=== PATIENT | male | born 1950 | race Caucasian/White ===

== ENCOUNTER 2020-12-24 11:03 | Outpatient (REF) | payer BC, SELFPAY ==
[2020-12-24 13:36] LABS: MANUAL DIFF FLAG NO
[2020-12-24 13:42] LABS: Basophils Absolute Auto 0.1 X10*3/uL (0.0-0.2); Eosinophils Absolute Auto 0.5 X10*3/uL (0.0-0.4); Eosinophils Percent Auto 10.4 % (0-4); Hematocrit 38.2 % (42-52); Hemoglobin 12.5 g/dl (14.0-18.0); Imm Gran Abs Auto 0.01 X10*3/uL (0.00-0.03); Imm Gran Pct Auto 0.2 % (0.0-0.4); Lymphocytes Absolute Auto 1.2 X10*3/uL (1.2-4.9); Lymphocytes Percent Auto 22.8 % (20-40); Mean Corpuscular HGB Conc 32.7 g/dl (31.0-36.0); Mean Corpuscular Hemoglobin 29.1 pg (27.0-33.0); Mean Corpuscular Volume 88.8 fL (80-98); Mean Platelet Volume 9.6 fL (9.4-12.4); Monocytes Absolute Auto 0.6 X10*3/uL (0.1-1.2); Monocytes Percent Auto 11.4 % (2-11); Neutrophils Absolute Auto 2.8 X10*3/uL (2.0-8.3); Neutrophils Percent Auto 54.2 % (45-73); Platelet Count 298 X10*3/uL (160-400); Red Cell Distribution Width 12.4 % (11.0-16.0); White Blood Count 5.2 X10*3/uL (4.8-10.8)
[2020-12-24 13:51] LABS: D Dimer 338 NG/ML
[2020-12-24 14:03] LABS: Alanine Aminotransferase 11 U/L (0-40); Albumin Level 4.1 g/dL (3.5-5.0); Alkaline Phosphatase 109 U/L (39-117); Anion Gap 11 (12-20); Aspartate Amino Transferase 19 U/L (5-37); Bilirubin Total 0.5 mg/dL (0.0-1.0); Blood Urea Nitrogen 14 mg/dL (9-16); Calcium 9.5 mg/dL (8.4-10.2); Carbon Dioxide 28 mmol/L (22-29); Chloride 101 mmol/L (96-108); Cholesterol 160 mg/dL; Estimated Glomerular Filt Rate > 60; Glucose Fasting 83 mg/dL (60-99); HDL Cholesterol 58 mg/dL; LDL Cholesterol Calculated 95 mg/dl; Potassium 4.4 mmol/L (3.3-5.1); Sodium 136 mmol/L (135-145); Total Protein 7.5 g/dL (6.5-8.0); Triglycerides 36 mg/dL
[2020-12-24 14:16] LABS: Prostate Specific Antigen Scr 0.58 ng/mL (<0.05-4.0)
[2020-12-26 15:46] LABS: Lyme Abs Screen <0.90 index
== END 2020-12-24 11:04 | disposition home or self-care (01) ==
LOC: HO.HMGCLDS 11:03
PROVIDERS: PCP Internal Medicine; Visit Provider Internal Medicine
DX: Z00.00 Encounter for general adult medical examination without abnormal findings (principal); Z12.5 Encounter for screening for malignant neoplasm of prostate
CPT/HCPCS: 36415; 80053; 80061; 84153; 85025; 85379; 86617; 86618

== ENCOUNTER 2022-04-13 14:15 | Outpatient (REF) | payer BC, SELFPAY ==
--- NOTE | ~2022-04-13 | XR_ITS ---
EXAMINATION: XR CERVICAL SPINE CLINICAL INFORMATION: Pain. COMPARISON: None TECHNIQUE: Frontal, odontoid, bilateral oblique and lateral views are obtained. FINDINGS: Vertebral body heights and alignment are normal. There is moderately severe disc space narrowing at C3-C4. At C4-C5 and C5-C6, there is mild disc space narrowing. At C6-C7, there is moderately severe disc space narrowing. No acute fracture or spondylolisthesis is seen. There is multi-level cervical spondylosis and facet arthropathy. The disc spaces are well-maintained. No acute fracture or spondylolisthesis is seen. The posterior elements are intact. There is right neural foraminal narrowing extending from C3-C4 through C7-T1. There is left neural foramina at C2-C3, C3-C4 and C6-C7. There is no prevertebral soft tissue swelling. The dens and C7-T1 interface are normal. XR/XR cervical spine min 6V IMPRESSION: 1. There is moderately severe degenerative disc disease at C3-C4 and C6-C7, and mild degenerative disc disease is seen at C4-C5 and C5-C6. 2. This multi-level cervical spondylosis and facet arthropathy. 3. There is multi-level bilateral neural foraminal narrowing, detailed above.
[2022-04-13 15:23] LABS: C Reactive Protein 6.02 mg/dL (< or = 0.50)
[2022-04-13 15:38] LABS: Erythrocyte Sedimentation Rate 55 MM/HR (0-15)
[2022-04-17 08:58] LABS: Lyme Blot 0.98 index
[2022-04-18 08:37] LABS: Lyme Abs Screen EQUIVOCAL
[2022-04-18 14:04] LABS: 18 KD (IgG) Band REACTIVE; 23 KD (IgG) Band REACTIVE; 23 KD (IgM) Band REACTIVE; 28 KD (IgG) Band NON-REACTIVE; 30 KD (IgG) Band NON-REACTIVE; 39 KD (IgM) Band NON-REACTIVE; 39KD (IgG) Band NON-REACTIVE; 41 KD (IgM) Band NON-REACTIVE; 41KD (IgG) Band NON-REACTIVE; 45 KD (IgG) Band NON-REACTIVE; 58 KD (IgG) Band REACTIVE; 66 KD (IgG) Band NON-REACTIVE; 93 KD (IgG) Band REACTIVE; Lyme IgG Blot Interp NEGATIVE (NEGATIVE); Lyme IgM Blot Interp NEGATIVE (NEGATIVE)
== END 2022-04-13 14:16 | disposition home or self-care (01) ==
LOC: HO.XRAY 14:15
PROVIDERS: PCP Internal Medicine; Visit Provider Internal Medicine
DX: M54.2 Cervicalgia (principal)
CPT/HCPCS: 36415; 72052; 85652; 86140; 86617; 86618

== ENCOUNTER 2022-09-21 14:14 | Outpatient (REF) | payer BC, SELFPAY ==
[2022-09-25 07:28] LABS: Lyme Abs Screen <0.90 index
== END 2022-09-21 14:15 | disposition home or self-care (01) ==
LOC: HO.LAB 14:14
PROVIDERS: PCP Internal Medicine; Visit Provider Internal Medicine
DX: A69.20 Lyme disease, unspecified (principal)
CPT/HCPCS: 36415; 86617; 86618

== ENCOUNTER → 2023-02-14 09:57 | Outpatient (REF) | payer BC, SELFPAY | LOC: HO.SL 09:57 | PROVIDERS: PCP Internal Medicine; Visit Provider Internal Medicine | DX: G47.33 Obstructive sleep apnea (adult) (pediatric) (principal) | CPT/HCPCS: 95806 ==

== ENCOUNTER → 2023-02-14 19:00 | Outpatient (BNV) | payer BC, SELFPAY | PROVIDERS: PCP Internal Medicine; Visit Provider Internal Medicine | DX: G47.33 Obstructive sleep apnea (adult) (pediatric) (principal) | CPT/HCPCS: 95806 ==

== ENCOUNTER 2023-03-28 08:36 | Outpatient (AMB) | payer BC, SELFPAY ==
--- NOTE | 2023-03-28 08:37 | A.OFFVIS_ITS ---
Intake Vital Signs 03/28/23 08:39 Height 5 ft 7.72 in Weight 135 lb 12.876 oz BMI 20.8 BP 134/68 Blood Pressure Location Rt brachial Position Sitting Pulse 76 Pulse Source Pulse Oximeter Intake Visit Reasons: Cervicalgia Intake Note: New patient presents today for consult. C/o neck pain, upper and lower back, hips, and chest. Patient states the pain comes and goes and describes the pain as body aches that will last for a few days then goes away. Pain started approx 20 years. Has tried Motrin. 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 The condition started about 20 years ago with patient getting episodes of migratory joint pain usually affecting his neck, chest, shoulders, outside of his hips, back. The attacks would occur 3 to 4 times a month and last 2-5 days. It would usually affect 1 joint. The pain would be persistent and not particularly better or worse in the morning or at night. He sometimes takes Motrin 200-400 mg once when symptoms are severe. He did not notice any swollen joints. Did not notice any rashes. In 2019. Patient pulled a tick from his skin and was tested for Lyme disease, testing was positive. He was having joint pain. He received antibiotics with resolution of his symptoms. He states that those symptoms have been there for about 20 years and have not changed much in frequency or intensity. He denies any diarrhea, constipation, blood in stools. He had a colonoscopy and does not recall anything remarkable. Denies history suggestive of uveitis. His father had gout. He is unaware of any family history of an autoimmune rheumatic disease. Of note patient was diagnosed with chronic eosinophilic pneumonia about 20 years ago. He would get prednisone tapers as needed for significant symptoms. He took omalizumab for 4-5 years, then it is lost efficacy and was switched to Dupixent about 4 years ago and it is effective. He denies any fevers, weight loss, denies any history of DVT/PE. 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 Review of Systems Const Denies fever(s) and Denies weight loss Eyes Denies blurry vision and Denies eye pain Card Reports no additional complaints Resp Reports no additional complaints GI Reports no additional complaints, Denies abdominal pain, Denies hematochezia, Denies diarrhea and Denies loose stools Musc Reports back pain, Reports arthralgias, Denies joint swelling and Reports stiffness Skin/Breast Denies rash Physical Exam Vital Signs: Last Vital Signs Pulse 76 03/28/23 08:39 BP 134/68 03/28/23 08:39 BMI result Body Mass Index 20.8 Const General: cooperative, healthy appearing and comfortable Nutritional Appearance: average body habitus Orientation/consciousness: patient oriented x3 Limitations: no limitations HEENT Head: Yes normocephalic and Yes atraumatic Resp Effort & Inspection: normal respiratory effort and able to speak in complete sentences Auscultation: clear to auscultation bilaterally Cardio Rate: regular rate Rhythm: regular rhythm Heart sounds: S1 normal heart sound present Skin Other: Significant dry skin both hands General skin exam: dry skin Neuro General: patient oriented x3 Extrem Other: No active synovitis Osteoarthritic changes of both hands with no active synovitis Deformity and some enlargement of right 4th PIP (injured in the past) Normal nailfold capillaroscopy No signs of tennis or golfer's elbow bilaterally Negative rotator cuff provocative maneuvers bilaterally Dora test 10-13 cm Negative straight leg raise test bilaterally Negative DWAYNE test bilaterally No ankle swelling or tenderness bilaterally Negative MTP squeeze test Assessment & Plan Assessment & Plan (1) Polyarthralgia: Code(s): M25.50 - Pain in unspecified joint Plan: This is a 72-year-old male who presents for evaluation of intermittent migratory polyarthralgias that occur 3 to 4 times a month and last 2-5 days affecting different joints including neck, shoulders, hips, lower back. Resolved with Motrin when needed. Has history of chronic eosinophilic pneumonia. There is no active synovitis on exam. Advised patient to get labs done as soon as he feels he is in a flare will check bilateral SI joint x-rays, L-spine x-rays and bilateral shoulder x-rays. Follow-up after workup is completed Plan I spent 47 minutes reviewing patient's chart, evaluating patient, ordering diagnostic workup, counseling patient and documenting in the chart Orders: Orders Complete Blood Count Auto Diff Today M25.50 - Pain in unspecified joint Erythrocyte Sedimentation Rate Today M25.50 - Pain in unspecified joint Protein Electrophoresis, Serum Today M25.50 - Pain in unspecified joint Hepatitis A,B,C Profile Today Z11.59 - Encounter for screening for other viral diseases T Spot TB Today Z11.7 - Encounter for testing for latent tuberculosis infection MANDI Reflex Titer and Pattern Today M25.50 - Pain in unspecified joint Rheumatoid Factor Today M25.50 - Pain in unspecified joint XR shoulder RT min 2V Today M25.50 - Pain in unspecified joint Comprehensive Met. Panel Today M25.50 - Pain in unspecified joint C Reactive Protein Today M25.50 - Pain in unspecified joint Immunofixation Pnl, Serum Today M25.50 - Pain in unspecified joint Cyclic Citrullinated Peptide Today M25.50 - Pain in unspecified joint HLA B27 Today M45.9 - Ankylosing spondylitis of unspecified sites in spine XR sacroiliac joint min 3V Today M25.50 - Pain in unspecified joint XR shoulder LT min 2V Today M25.50 - Pain in unspecified joint XR lumbar spine 4V min Today M25.50 - Pain in unspecified joint Coding Level of Care Code New Pt Level 4 (72652) Diagnoses Polyarthralgia M25.50
[2023-03-28 08:39] VITALS: BP 134/68; PULSE 76; BMI 20.8
== END 2023-03-28 09:26 | disposition home or self-care (01) ==
PROVIDERS: PCP Internal Medicine; Visit Provider Student in an Organized Health Care Education/Training Program
DX: M25.50 Pain in unspecified joint (principal)
CPT/HCPCS: 99204

== ENCOUNTER → 2023-03-28 08:36 | Outpatient (BNVA) | payer BC, SELFPAY | PROVIDERS: PCP Internal Medicine; Visit Provider Student in an Organized Health Care Education/Training Program ==

== ENCOUNTER 2023-06-20 09:36 | Outpatient (AMB) | payer BC, SELFPAY ==
[2023-06-20 09:41] VITALS: BP 142/64; PULSE 66; O2SAT 100; BMI 21.1
--- NOTE | 2023-06-20 09:41 | A.OFFVIS_ITS ---
Intake Vital Signs 06/20/23 09:41 Height 5 ft 7.72 in Weight 137 lb 12.623 oz BMI 21.1 BP 142/64 H Blood Pressure Location Lt brachial Position Sitting Pulse 66 Pulse Source Doppler Pulse Oximetry (%) 100 Oxygen Delivery Method Room Air Intake Visit Reasons: sleep apnea Allergies No Known Allergies Allergy (Verified 03/28/23 08:44) HPI sleep apnea HPI Details 72-year-old gentleman with underlying ob structive sleep apnea, previously managed with BiPAP secondary to intolerance of CPAP who has had a recent sleep study showing AHI of 12 and wants to continue on nocturnal noninvasive positive pressure ventilation therapy. 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 Review of Systems Const Denies daytime sleepiness, Denies excessive sweating, Denies fatigue, Denies fever(s), Denies lethargy, Denies malaise, Denies night sweats, Denies snoring and Denies weight loss Eyes Denies blurry vision and Denies itchy eyes ENT Denies nasal congestion, Denies post nasal drip, Denies sinus pain, Denies sinus pressure and Denies other ( Thrush) Card Denies chest pain, Denies pedal edema, Denies dyspnea, Denies orthopnea and Denies paroxysmal nocturnal dyspnea Resp Denies cough, Denies hemoptysis, Denies excessive phlegm production, Denies dyspnea, Denies snoring and Denies wheezing GI Denies abdominal pain and Denies heartburn Musc Denies myalgias, Denies arthralgias and Denies joint swelling Skin/Breast Denies rash Neuro Denies memory loss and Denies seizure-like activity Psych Denies abnormal sleep pattern, Denies anxiety and Denies memory loss Endo Denies excessive sweating, Denies fatigue and Denies heat intolerance Bennie/Lymph Denies easy bruising Aller/Immun Denies itchy eyes, Denies seasonal rhinorrhea and Denies wheezing Physical Exam Vital Signs: Last Vital Signs Pulse 66 06/20/23 09:41 BP 142/64 H 06/20/23 09:41 Pulse Ox 100 06/20/23 09:41 Oxygen Delivery Method Room Air 06/20/23 09:41 BMI result Body Mass Index 21.1 Const General: no acute distress and alert Nutritional Appearance: not obese Orientation/consciousness: Other orientation findings ( oriented) HEENT Head: Yes atraumatic Eyes General: appearance normal, both eyes and all related structures Sclerae: sclerae normal EOM: EOMs intact bilaterally Neck Neck: Yes supple Lymphatic: no lymphadenopathy noted Resp Effort & Inspection: normal respiratory effort and no use of accessory muscles Cardio Rate: regular rate Skin General skin exam: other ( warm) Extrem General: No clubbing and No cyanosis Assessment & Plan Assessment & Plan (1) Obstructive sleep apnea: Code(s): G47.33 - Obstructive sleep apnea (adult) (pediatric) Plan: Results of sleep study reviewed - underlying mild obstructive sleep apnea. Will try on APAP of 5-15 cm of water. Order placed. Coding Level of Care Code New Pt Level 3 (27265) Diagnoses Obstructive sleep apnea G47.33
== END 2023-06-20 09:55 | disposition home or self-care (01) ==
PROVIDERS: PCP Internal Medicine; Referring Provider Internal Medicine; Visit Provider Internal Medicine Pulmonary Disease
DX: G47.33 Obstructive sleep apnea (adult) (pediatric) (principal)
CPT/HCPCS: 99203

== ENCOUNTER → 2023-06-20 09:36 | Outpatient (BNVA) | payer BC, SELFPAY | PROVIDERS: PCP Internal Medicine; Referring Provider Internal Medicine; Visit Provider Internal Medicine Pulmonary Disease ==

== ENCOUNTER 2023-07-11 10:39 | Outpatient (REF) | payer BC, SELFPAY ==
[2023-07-11 11:12] LABS: MANUAL DIFF FLAG NO
[2023-07-11 12:00] LABS: Basophils Percent Auto 0.6 % (0-2); Eosinophils Absolute Auto 0.7 X10*3/uL (0.0-0.4); Eosinophils Percent Auto 10.3 % (0-4); Hematocrit 38.2 % (42.0-52.0); Hemoglobin 12.3 g/dl (14.0-18.0); Imm Gran Abs Auto 0.01 X10*3/uL (0.00-0.03); Imm Gran Pct Auto 0.2 % (0.0-0.4); Lymphocytes Absolute Auto 1.1 X10*3/uL (1.2-4.9); Lymphocytes Percent Auto 17.6 % (20-40); Mean Corpuscular HGB Conc 32.2 g/dl (31.0-36.0); Mean Corpuscular Hemoglobin 28.7 pg (27.0-33.0); Mean Corpuscular Volume 89.3 fL (80.0-98.0); Mean Platelet Volume 9.4 fL (9.4-12.4); Monocytes Absolute Auto 0.6 X10*3/uL (0.1-1.2); Monocytes Percent Auto 9.7 % (2-11); Neutrophils Percent Auto 61.6 % (45-73); Platelet Count 289 X10*3/uL (160-400); Red Blood Count 4.28 X10*6/uL (4.60-5.80); Red Cell Distribution Width 12.6 % (11.0-16.0); White Blood Count 6.5 X10*3/uL (4.8-10.8)
[2023-07-11 12:28] LABS: Rheumatoid Factor < 13.0 IU/mL (<15.0)
[2023-07-11 12:30] LABS: B Type Natriuretic Peptide 44 pg/mL (<100)
[2023-07-11 12:36] LABS: Erythrocyte Sedimentation Rate 68 MM/HR (0-15)
[2023-07-11 12:41] LABS: Alanine Aminotransferase 10 U/L (0-40); Alanine Aminotransferase 11 U/L (0-40); Albumin Level 4.1 g/dL (3.5-5.0); Alkaline Phosphatase 93 U/L (39-117); Alkaline Phosphatase 95 U/L (39-117); Anion Gap 12 (12-20); Anion Gap 14 (12-20); Aspartate Amino Transferase 17 U/L (5-37); Aspartate Amino Transferase 18 U/L (5-37); Bilirubin Total 0.5 mg/dL (0.0-1.0); Blood Urea Nitrogen 12 mg/dL (9-16); C Reactive Protein 9.11 mg/dL (< or = 0.50); Calcium 10.4 mg/dL (8.4-10.2); Carbon Dioxide 28 mmol/L (22-29); Carbon Dioxide 29 mmol/L (22-29); Chloride 101 mmol/L (96-108); Cholesterol 152 mg/dL (<200); Estimated Glomerular Filt Rate > 60; Glucose Random 87 mg/dL (60-115); Glucose Random 88 mg/dL (60-115); Iron 39 mcg/dL (45-160); Percent Iron Saturation 17 % (15-50); Potassium 3.9 mmol/L (3.3-5.1); Sodium 138 mmol/L (135-145); Sodium 139 mmol/L (135-145); Total Iron Binding Capacity 235 mcg/dL (228-428); Total Protein 8.2 g/dL (6.5-8.0); Total Protein 8.4 g/dL (6.5-8.0); Unsaturated Iron Binding 196 ug/dL
[2023-07-11 12:47] LABS: Ferritin 180 ng/mL (20-250)
[2023-07-11 12:50] LABS: HBS Num1 0.09 mIU/mL (0-7.99); HBsAGNum1 0.27 S/CO (0.00-0.99); Hepatitis A Antibody IgM 0.26 Index (0-0.79); Hepatitis B Core Antibody Nonreactive (Nonreactive); Hepatitis B Surface Antigen Negative (Negative); ~HepC Num1 0.23 S/CO (0.00-0.79); ~Hepatitis A Antibody IgM Nonreactive (Nonreactive); ~Hepatitis B Surface Antibody NONREACTIVE (Nonreactive); ~Hepatitis C Antibody Nonreactive (Nonreactive)
[2023-07-11 14:04] LABS: Appearance Urine Clear; Color Urine Yellow; Glucose Urine UA Negative (Negative); Leukocyte Esterase Urine Negative (Negative); Nitrite Urine Negative (Negative); PH 7.5 (5.0-9.0); Specific Gravity - Urine <= 1.005 (1.005-1.025); Urine Blood Negative (Negative); Urine Ketones Negative (Negative); Urine Protein Negative (Neg-Trace)
[2023-07-11 14:09] LABS: Folate 10.7 ng/mL (> or = 4.0); Prostate Specific Antigen 0.47 ng/mL (<0.05-4.0); Vitamin B12 515 pg/mL (200-900)
[2023-07-12 12:08] LABS: Prot Elec - Albumin 3.9 g/dL (3.8-4.8); Prot Elec - Alpha1 0.5 g/dL (0.2-0.3); Prot Elec - Alpha2 0.9 g/dL (0.5-0.9); Prot Elec - Beta 1 0.5 g/dL (0.4-0.6); Prot Elec - Beta 2 0.6 g/dL (0.2-0.5); Prot Elec - Gamma 1.5 g/dL (0.8-1.7); Prot Elec - Total Protein 7.8 g/dL (6.1-8.1)
[2023-07-12 14:03] LABS: Cyclic Citrullinated Peptide <16 UNITS
[2023-07-12 18:29] LABS: Lyme Abs Screen <0.90 index
[2023-07-14 15:32] LABS: TS Negative Control Passed; TS Panel A 0; TS Panel B 0; TS Positive Control Passed; TSpotTB Negative (Negative)
[2023-07-15 14:28] LABS: Anti Nuclear Antibody Screen POSITIVE (NEGATIVE)
[2023-07-16 17:32] LABS: IgA 442 mg/dL (70-320); IgG 1518 mg/dL (600-1540); IgM 281 mg/dL (50-300)
[2023-07-17 11:38] LABS: HLA B27 Negative (Negative)
== END 2023-07-11 10:40 | disposition home or self-care (01) ==
LOC: HO.LAB 10:39
PROVIDERS: Student in an Organized Health Care Education/Training Program; PCP Internal Medicine; Visit Provider Internal Medicine
DX: M25.50 Pain in unspecified joint (principal); M45.9 Ankylosing spondylitis of unspecified sites in spine; J45.909 Unspecified asthma, uncomplicated; D64.9 Anemia, unspecified; Z11.59 Encounter for screening for other viral diseases; Z11.7 Encounter for testing for latent tuberculosis infection; Z12.5 Encounter for screening for malignant neoplasm of prostate; Z72.89 Other problems related to lifestyle
CPT/HCPCS: 36415; 80053; 81003; 82465; 82607; 82728; 82746; 82784; 83540; 83880; 84153; 84165; 85025; 85652; 86038; 86039; 86140; 86200; 86334; 86431; 86481; 86617; 86618; 86704; 86706; 86709; 86803; 86812; 87340

== ENCOUNTER 2023-08-01 09:32 | Outpatient (REF) | payer BC, SELFPAY ==
--- NOTE | ~2023-08-01 | XR_ITS ---
EXAMINATION: XR LUMBOSACRAL SPINE CLINICAL INFORMATION: Pain in unspecified joint COMPARISON: None available. TECHNIQUE: 3 views of the lumbar spine were obtained. FINDINGS: There is mild curve of the lumbar spine, convex right. There are 5 nonrib-bearing lumbar-type vertebral bodies. The height of vertebral bodies is well-maintained. There is mild disc space narrowing with marginal spur formation at L2-L3 and L5-S1. There is marked disc space narrowing with discogenic sclerosis and marginal osteophyte formation at L3-L4. There is mild multilevel degenerative facet joint disease. There is minimal retrolisthesis of L2 with respect to L3. There is degenerative change of the sacroiliac joints with erosions of the left sacroiliac joint which raises the question of sacroiliitis. XR/XR lumbar spine 4V min IMPRESSION: 1. Multilevel degenerative disc disease, most marked at L3-L4. 2. Multilevel degenerative facet joint disease. 3. Minimal retrolisthesis of L2 with respect to L3. 4. Question of sacroiliitis of the left sacroiliac joint. Dedicated views of the sacroiliac joints could be obtained.
--- NOTE | ~2023-08-01 | XR_ITS ---
EXAMINATION: XR SACROILIAC JOINTS CLINICAL INFORMATION: Pain in unspecified joint COMPARISON: Abdominal x-ray September 2018 TECHNIQUE: 3 views of the sacroiliac joints FINDINGS: Sacroiliac joints are normal. Left hip: Mild to moderate osteoarthritis with subchondral cystic change noted on both sides of the joint and mild joint space narrowing. Chondrocalcinosis. Right hip: Postop changes with 3 screws extending to the femoral neck into the head. No fracture line detected indicative of a healed fracture. Chondrocalcinosis. Symphysis pubis: Chondrocalcinosis. Surrounding bone and soft tissues unremarkable. XR/XR sacroiliac joint min 3V IMPRESSION: 1. Normal sacroiliac joints. 2. Osteoarthritis of the left hip. 3. Postsurgical changes of the right hip. 4. Chondrocalcinosis.
--- NOTE | ~2023-08-01 | XR_ITS ---
EXAMINATION: Bilateral shoulder series CLINICAL INFORMATION: Pain in joint COMPARISON: None. TECHNIQUE: 2 views of each shoulder FINDINGS: Right shoulder: There is a marginal osteophyte along the inferior aspect of the humeral head. No definite joint space narrowing although evaluation is limited without axillary or Grashey view Acromioclavicular joint mild osteoarthritis. There is some minimal amorphous calcification the posterior soft tissues. Left shoulder: Glenohumeral joint: Unremarkable. Acromioclavicular joint mild arthrosis. Subtle calcification in the subacromial space Surrounding bone and soft tissues unremarkable. XR/XR shoulder LT min 2V IMPRESSION: RIGHT SHOULDER: Mild osteoarthritis of the glenohumeral joint and acromioclavicular joint. LEFT SHOULDER: 1. Mild arthrosis of the acromioclavicular joint. 2. Calcific tendinosis/ calcific tendinitis of the rotator cuff.
--- NOTE | ~2023-08-01 | XR_ITS ---
EXAMINATION: Bilateral shoulder series CLINICAL INFORMATION: Pain in joint COMPARISON: None. TECHNIQUE: 2 views of each shoulder FINDINGS: Right shoulder: There is a marginal osteophyte along the inferior aspect of the humeral head. No definite joint space narrowing although evaluation is limited without axillary or Grashey view Acromioclavicular joint mild osteoarthritis. There is some minimal amorphous calcification the posterior soft tissues. Left shoulder: Glenohumeral joint: Unremarkable. Acromioclavicular joint mild arthrosis. Subtle calcification in the subacromial space Surrounding bone and soft tissues unremarkable. XR/XR shoulder RT min 2V IMPRESSION: RIGHT SHOULDER: Mild osteoarthritis of the glenohumeral joint and acromioclavicular joint. LEFT SHOULDER: 1. Mild arthrosis of the acromioclavicular joint. 2. Calcific tendinosis/ calcific tendinitis of the rotator cuff.
== END 2023-08-01 09:33 | disposition home or self-care (01) ==
LOC: HO.XRAY 09:32
PROVIDERS: PCP Internal Medicine; Visit Provider Student in an Organized Health Care Education/Training Program
DX: M25.50 Pain in unspecified joint (principal); M54.50 Low back pain, unspecified; M25.511 Pain in right shoulder; M25.512 Pain in left shoulder
CPT/HCPCS: 72110; 72202; 73030

== ENCOUNTER 2023-08-15 09:12 | Outpatient (AMB) | payer BC, SELFPAY ==
[2023-08-15 09:18] VITALS: BP 134/66; PULSE 78; O2SAT 100; BMI 21.1
--- NOTE | 2023-08-15 09:18 | MHC.OFFVIS ---
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 Unfortunately his x-rays were not ready yet. Continues to feel about the same. Gets intermittent flare-ups. Most recent flare-up was affecting the back of his right shoulder. It lasted 2-4 days and self-resolved. Sometimes during the winter those episodes happen about twice a month. Initial history: This is a 72-year-old male who presents for evaluation of polyarthralgias. The condition started about 20 years ago with patient getting episodes of migratory joint pain usually affecting his neck, chest, shoulders, outside of his hips, back. The attacks would occur 3 to 4 times a month and last 2-5 days. It would usually affect 1 joint. The pain would be persistent and not particularly better or worse in the morning or at night. He sometimes takes Motrin 200-400 mg once when symptoms are severe. He did not notice any swollen joints. Did not notice any rashes. In 2019. Patient pulled a tick from his skin and was tested for Lyme disease, testing was positive. He was having joint pain. He received antibiotics with resolution of his symptoms. He states that those symptoms have been there for about 20 years and have not changed much in frequency or intensity. He denies any diarrhea, constipation, blood in stools. He had a colonoscopy and does not recall anything remarkable. Denies history suggestive of uveitis. His father had gout. He is unaware of any family history of an autoimmune rheumatic disease. Of note patient was diagnosed with chronic eosinophilic pneumonia about 20 years ago. He would get prednisone tapers as needed for significant symptoms. He took omalizumab for 4-5 years, then it is lost efficacy and was switched to Dupixent about 4 years ago and it is effective. He denies any fevers, weight loss, denies any history of DVT/PE. 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 Review of Systems Resp Reports cough Musc Denies back pain and Denies arthralgias Physical Exam Vital Signs: Last Vital Signs Pulse 78 08/15/23 09:18 BP 134/66 08/15/23 09:18 Pulse Ox 100 08/15/23 09:18 Oxygen Delivery Method Room Air 08/15/23 09:18 BMI result Body Mass Index 21.1 Const General: cooperative, healthy appearing and comfortable Nutritional Appearance: average body habitus Orientation/consciousness: patient oriented x3 Limitations: no limitations HEENT Head: Yes normocephalic and Yes atraumatic Resp Effort & Inspection: normal respiratory effort and able to speak in complete sentences Skin Other: Significant dry skin both hands General skin exam: dry skin Neuro General: patient oriented x3 Extrem Other: No active synovitis Osteoarthritic changes of both hands with no active synovitis Deformity and some enlargement of right 4th PIP (injured in the past) Normal nailfold capillaroscopy No signs of tennis or golfer's elbow bilaterally Negative rotator cuff provocative maneuvers bilaterally Dora test 10-13 cm Negative straight leg raise test bilaterally Negative DWAYNE test bilaterally No ankle swelling or tenderness bilaterally Negative MTP squeeze test Assessment & Plan Assessment & Plan (1) Polyarthralgia: Code(s): M25.50 - Pain in unspecified joint Category: Medical Plan: This is a 72-year-old male with chronic eosinophilic pneumonia on Dupixent who presents for evaluation of intermittent migratory polyarthralgias that occur 1-2 times a month and last 2-5 days affecting different joints including neck, shoulders, hips, lower back. Resolved with Motrin when needed. Labs when in a flare show significantly elevated inflammatory markers. Serology is negative for RF/CCP/HLA B27, MANDI positive -80 with unclear significance X-rays report is pending. I had a long conversation with patient today regarding his diagnosis. Diagnosis of his polyarthralgias is not clear, might be a seronegative spondyloarthropathy versus flare-up of his osteoarthritis in the setting of chronic hyper eosinophilic state. Will attempt to reach out patient's lodge officer Dr. Gardiner. Follow-up in 1 year. Patient will reach out sooner if needed Plan I spent 27 minutes reviewing patient's chart, evaluating patient, ordering diagnostic workup, counseling patient and documenting in the chart Coding Level of Care Code Est Pt Level 4 (94316) Diagnoses Polyarthralgia M25.50
== END 2023-08-15 09:53 | disposition home or self-care (01) ==
PROVIDERS: PCP Internal Medicine; Referring Provider Internal Medicine; Visit Provider Student in an Organized Health Care Education/Training Program
DX: M25.50 Pain in unspecified joint (principal)
CPT/HCPCS: 99214

== ENCOUNTER → 2023-08-15 09:12 | Outpatient (BNVA) | payer BC, SELFPAY | PROVIDERS: PCP Internal Medicine; Visit Provider Student in an Organized Health Care Education/Training Program ==

== ENCOUNTER 2024-10-08 07:50 | Outpatient (AMB) | payer MEDICARE, SELFPAY ==
--- OUTSIDE RECORDS SUMMARY | 2024-10-08 07:53 | XMS_ITS | Clinical Summary ---
Author Organization [employer] Address [address] [place] [address] Care Team Providers Care Filenet Admin Name Role Phone Unavailable Primary Care Provider Unavailabl e Immunizations Immunization Administration Dates Next Due Influenza High-dose Quadriva lent Preservative Free 12/16/2019 Influenza Injectable Quadriv alant Preservative Free IIV4 MDCK 11/29/2022,11/23/2021,11/24/2020 Influenza injectable quadriv alent IIV4 with preservative 11/19/2018,11/20/2017 Influenza, Unspecified 05/22/2018,11/12/2011 Influenza, seasonal, injecta ble, preservative free 11/20/2023 Moderna Covid-19 Vaccine 6+ Bivalent 02/23/2022 Pfizer Covid-19 Vaccine 12+ 11/29/2023,,11/19/2018 Tdap 11/29/2022 Zoster, Recombinant 08/10/2022,09/02/2020 Zoster, live 01/20/2016 Social History Tobacco Use Types Packs/Day Years Used Date Smoking Tobacco: Never Assessed Sex and Gender Information Value Date Recorded Sex Assigned at Male 01/08/2022 10:37 AM EDT Legal Sex Male 10:37 AM EDT Gender Identity Male 01/08/2022 10:37 AM EDT Sexual Orientation Choose not to disclose 2021 10:37 AM EDT Plan of Treatment Health Maintenance Due Date Last Done Comments CT Colonography 1952 Colonoscopy 1952 Colorectal Cancer Screening 1952 Depression Screening 1952 FIT DNA/Cologuard 1952 FIT 1952 FOBT 1952 Lipid Panel 1952 SDOH Screening 1952 Sigmoidoscopy 1952 Alcohol/Substance Use Screening 1964 Tobacco Screening 1964 Hepatitis C Screening 1970 COVID-19 Vaccine ( season) 2024 11/29/2023, 12/06/2022, 02/23/2022, Additional history exists Influenza Vaccine (#1) 2024 , 11/29/2022, 11/23/2021, Additional history exists DTaP/Tdap/Td Vaccines (2 - Td or Tdap) 11/29/2032 11/29/2022 Zoster Vaccines Completed 08/10/2022, 08/10, 01/20/2016 RSV Patients and Patients Aged 60 years or older Completed 01/11/2023 Pneumococcal Vaccine: 50+ Years Completed 08/29/2023 HIB Vaccines Aged Out No longer eligi ble based on patient's age to complete this topic HPV Vaccines Aged Out No longer eligi ble based on patient's age to complete this topic Hepatitis A Vaccines Aged Out No long er eligible based on patient's age to complete this topic Hepatitis B Vaccines Aged Out No long er eligible based on patient's age to complete this topic IPV Vaccines Aged Out No longer eligi ble based on patient's age to complete this topic Meningococcal B Vaccine Aged Out No l onger eligible based on patient's age to complete this topic Meningococcal Vaccine Aged Out No ac ira eligible based on patient's age to complete this topic RSV under 20 months Aged Out No longe r eligible based on patient's age to complete this topic Rotavirus Vaccines Aged Out No longer eligible based on patient's age to complete this topic Insurance [facility] Address: [address] [place] [address] [place] [address]
--- NOTE | 2024-10-08 08:16 | A.OFFVIS_ITS ---
Vital Signs 10/08/24 08:25 Height 5 ft 7 in Weight 134 lb 0.657 oz BMI 21.0 BP 130/62 Blood Pressure Location Lt brachial Position Sitting Respiration 18 Pulse 78 Pulse Source Pulse Oximeter Pulse Oximetry (%) 98 Oxygen Delivery Method Room Air Intake Visit Reasons: hypereosinophilic syndrome Intake Note: Patient presents for Hypereosinophilic Syndrome follow up. Allergies No Known Allergies Allergy (Verified 10/08/24 08:21) HPI Comments Details: Patient is a 73 y.o. 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 Coffman - Following up post evaluation for polyarthralgias - Serologies negative except for elevated ESR and CRP - Recommended switching Dupixent to Nucala Today - Since the switch he has noted improvement in his joint pains but worsening nasal polyposis - Doing well on Nucala, not interested in additional meds at this time - Had an episode of gout involving his great toe that responded to NSAIDs. 2nd attack in his lifetime. Last attack several years ago Rheumatologic History: Initial History: This is a 72-year-old male who presents for evaluation of polyarthralgias. The condition started about 20 years ago with patient getting episodes of migratory joint pain usually affecting his neck, chest, shoulders, outside of his hips, back. The attacks would occur 3 to 4 times a month and last 2-5 days. It would usually affect 1 joint. The pain would be persistent and not particularly better or worse in the morning or at night. He sometimes takes Motrin 200-400 mg once when symptoms are severe. He did not notice any swollen joints. Did not notice any rashes. In 2019. Patient pulled a tick from his skin and was tested for Lyme disease, testing was positive. He was having joint pain. He received antibiotics with resolution of his symptoms. He states that those symptoms have been there for about 20 years and have not changed much in frequency or intensity. He denies any diarrhea, constipation, blood in stools. He had a colonoscopy and does not recall anything remarkable. Denies history suggestive of uveitis. His father had gout. He is unaware of any family history of an autoimmune rheumatic disease. Of note patient was diagnosed with chronic eosinophilic pneumonia about 20 years ago. He would get prednisone tapers as needed for significant symptoms. He took omalizumab for 4-5 years, then it is lost efficacy and was switched to Dupixent about 4 years ago and it is effective. He denies any fevers, weight loss, denies any history of DVT/PE. 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 Review of Systems Const Details: Review of Systems Constitutional: Denies fever, chills, weight loss ENT: Denies vision changes, eye pain or eye redness, dental caries, dry mouth GI: Denies nausea, vomiting, diarrhea, abdominal pain, change in BM Pulm: Denies SOB, PRESCOTT, hemoptysis Cards: Denies chest pain, palpitations Skin: Denies Raynaud's, rash, nail changes, photosensitivity, [employer]ELD INSPECTOR: Denies headaches, weakness, paresthesias, recurrent falls MSK: as per HPI All other systems reviewed and are unremarkable except noted above Physical Exam Exam Exam: Vital signs reviewed Physical Examination CONSTITUITIONAL Patient alert and cooperative. Well appearing and in no apparent painful distress MSK Hands * Right Hand: Able to make a fist. No swelling or tenderness to palpation of these joints. No deformities noted. * Left Hand: Able to make a fist. No swelling or tenderness to palpation of these joints. No deformities noted. Wrists * Right Wrist: Full ROM. 70 degrees of wrist flexion, 80 degrees of wrist extension. No swelling or TTP * Left Wrist: Full ROM. 70 degrees of wrist flexion, 80 degrees of wrist extension. No swelling or TTP Elbows * Right Elbow: Full ROM. No swelling or TTP. No TTP of the medial and lateral epicondyles * Left Elbow: Full ROM. No swelling or TTP. No TTP of the medial and lateral epicondyles Shoulders * Right shoulder: Full ROM. No swelling noted. No TTP of the AC joint, subacromial bursa or posterior shoulder * Left shoulder: Full ROM. No swelling noted. No TTP of the AC joint, subacromial bursa or posterior shoulder Knees * Right knee: Full ROM. No swelling noted. No TTP of the knee joint lie or pes anserine bursa * Left knee: Full ROM. No swelling noted. No TTP of the knee joint lie or pes anserine bursa. * Crepitations felt bilaterally Ankles * Right ankle: Good ankle dorsiflexion and plantar flexion. No swelling. No TTP of the ankle joint * Left ankle: Good ankle dorsiflexion and plantar flexion. No swelling. No TTP of the ankle joint Feet * Right foot: Negative squeeze test * Left foot: Negative squeeze test Tender points? * No tenderness to palpation of the bilateral trapezius, supraspinatus, anterior costochondral junctions, bilateral suboccipital muscle insertions SKIN No rashes Vital Signs: Last Vital Signs Pulse 78 10/08/24 08:25 Resp 18 10/08/24 08:25 BP 130/62 10/08/24 08:25 Pulse Ox 98 10/08/24 08:25 Oxygen Delivery Method Room Air 10/08/24 08:25 BMI result Body Mass Index 21.0 Results Reviewed Results Reviewed: 09/24/24 [facility] WBC 5.65 Hb 12.9 L Plt 273 ESR 43 H CRP 24.1 H Assessment & Plan Assessment & Plan (1) Polyarthralgia: Code(s): M25.50 - Pain in unspecified joint Category: Medical Plan: #Polyarthralgias Patient is a 73-year-old male here today for follow up of polyarthralgias. Extensive blood work was done 1 year ago which only revealed elevated ESR and CRP. This was thought to be related to his underlying hyper eosinophilia and collars recommended. Patient has been on Nucala and has noticed improvement in his joint pain but his ESR and CRP remain elevated. His exam does not have any evidence of synovitis today. Unsure of what the underlying cause of his polyarthralgias in his. He does have significant chondrocalcinosis noted in several places in his x-rays per it so he could have an element of CPPD. His main issue was neck and spine pain. You can get spinal involvement of chondrocalcinosis but this is usually related to a crowned dens syndrome. Since he is having good control of his joint pain with a Nucala he can continue this. If there is any new concerns we can consider adding methotrexate or colchicine Plan - Continue to monitor - RTC 1 year Plan I spent 20 minutes reviewing the record and labs, taking a history, examining the patient, discussing the treatment plan, ordering diagnostic work up and documenting in the medical record Coding Level of Care Code Est Pt Level 3 (98924) Diagnoses Polyarthralgia M25.50
[2024-10-08 08:25] VITALS: BP 130/62; PULSE 78; RESP 18; O2SAT 98; BMI 21.0
== END 2024-10-08 08:53 | disposition home or self-care (01) ==
LOC: HO.RHE 07:51
PROVIDERS: PCP Internal Medicine; Visit Provider Student in an Organized Health Care Education/Training Program
DX: M25.50 Pain in unspecified joint (principal)
CPT/HCPCS: 99213

== ENCOUNTER → 2024-10-08 07:50 | Outpatient (BNVA) | payer MEDICARE, SELFPAY | PROVIDERS: PCP Internal Medicine; Visit Provider Student in an Organized Health Care Education/Training Program | DX: Z79.899 Other long term (current) drug therapy (principal) | CPT/HCPCS: 99212 ==